=== PATIENT | female | born 1930 | race Caucasian/White ===

== ENCOUNTER 2018-01-12 11:49 | Emergency (ER) | payer MEDICARE ==
--- NOTE | 2018-01-12 11:53 | ER Report ---
History and Physical Time Seen By MD: 11:51 HPI/ROS CHIEF COMPLAINT: fall with right femur pain HISTORY OF PRESENT ILLNESS: This is an 87 year old female. [place] twisting motion in the grass. Has pain in distal right thigh and into the lateral knee. Did not injure anything else that she is aware of. Has no head injury or back pain. She has traction per EMS and feels better. Also was given Fentanyl 50mcg IV. EMS reported the leg is twisted inward and shortened with deformity mid tibia. She has normal sensation in the leg and foot and can move the foot and toes. She has pain worsening with motion of the leg. Last oral intake was about 1 hour ago, about 1100, ate a burrito. Allergies: Coded Allergies: No Known Drug Allergies (Unverified , 01/12/18) Home Meds Reported Medications Multivitamin With Minerals (MULTIPLE VITAMIN) 1 Each Tablet, 1 EACH PO DAILY, T AB 01/12/18 Past Medical/Surgical History Right total knee replacement, right shoulder repair, has some urinary stress incontinence, arthritis Reviewed Nurses Notes: Yes Constitutional Vital Sign - Last 24 Hours 01/12/18 01/12/18 01/12/18 01/12/18 11:51 12:00 12:15 12:30 Temp 97.6 Pulse 71 71 74 71 Resp 16 23 24 16 B/P (MAP) 170/134 Pulse Ox 91 97 96 96 O2 Delivery Room Air 01/12/18 01/12/18 01/12/18 01/12/18 12:45 13:00 13:15 13:43 Pulse 75 79 82 Resp 14 47 36 B/P (MAP) 173/80 (111) Pulse Ox 96 95 95 01/12/18 01/12/18 01/12/18 01/12/18 13:45 14:00 14:15 14:30 Pulse 75 75 70 77 Resp 19 10 19 11 Pulse Ox 96 94 95 91 01/12/18 01/12/18 01/12/18 01/12/18 14:45 15:00 15:15 15:17 Temp 98.1 Pulse 79 75 75 75 Resp 8 20 20 14 B/P (MAP) 141/79 (99) Pulse Ox 95 92 96 Physical Exam General Appearance: The patient is alert. No acute distress. Non-toxic in appearance. Eyes: Pupils are equal, round. Reactive to light. No pallor, injection or icterus. Extraocular movements are intact. ENT: Mucous membranes are moist. Normal oral mucosa. Posterior oropharynx is normal. Neck: Supple and non tender. No lymphadenopathy. Respiratory: Lungs are clear to auscultation. Cardiovascular: Regular rate and rhythm. No murmurs, gallops or rubs. Normal capillary refill. Normal dorsalis pedis and posterior tibialis pulses. No edema. Gastrointestinal: Abdomen is soft and non tender. Nondistended. Normal active bowel sounds. Neurological: Alert and oriented x3. Has normal sensation in the foot, leg and hip areas. Can move the foot and ankle without deficits. Skin: Swelling of the mid thigh. Some mild bruising. No rashes. Musculoskeletal: Patient is tender mid femur and down to the knee to the lateral side. Can move the foot and ankle, no weakness noted there. No pain of the hip and pelvis area. DIFFERENTIAL DIAGNOSIS: After history and physical exam, differential diagnosis was considered for pain and deformity of the right thigh concerning for bony injury. Medical Decision Making Data Points Result Diagram: 01/12/18 1414 01/12/18 1414 Laboratory Hematology Test 01/12/18 14:14 Red Blood Count 4.54 M/uL (4.17-5.56) Mean Corpuscular Volume 92.7 fL (80.0-96.0) Mean Corpuscular Hemoglobin 31.3 pg (26.0-33.0) Mean Corpuscular Hemoglobin Concent 33.8 g/dL (32.0-36.0) Red Cell Distribution Width 14.9 % (11.5-14.5) Mean Platelet Volume 10.3 fL (7.2-11.1) Neutrophils (%) (Auto) 81.5 % (39.4-72.5) Lymphocytes (%) (Auto) 10.2 % (17.6-49.6) Monocytes (%) (Auto) 6.5 % (4.1-12.4) Eosinophils (%) (Auto) 0.8 % (0.4-6.7) Basophils (%) (Auto) 1.0 % (0.3-1.4) Nucleated RBC Relative Count (auto) 0.1 /100WBC Neutrophils # (Auto) 4.4 K/uL (2.0-7.4) Lymphocytes # (Auto) 0.5 K/uL (1.3-3.6) Monocytes # (Auto) 0.3 K/uL (0.3-1.0) Eosinophils # (Auto) 0.0 K/uL (0.0-0.5) Basophils # (Auto) 0.1 K/uL (0.0-0.1) Nucleated RBC Absolute Count (auto) 0.00 K/uL Prothrombin Time 13.0 seconds (12.0-14.4) Prothromb Time International Ratio 0.98 Activated Partial Thromboplast Time 27 seconds (23-35) Sodium Level 138 mmol/L (137-145) Potassium Level 3.7 mmol/L (3.5-5.0) Chloride Level 104 mmol/L (98-107) Carbon Dioxide Level 27 mmol/L (22-31) Blood Urea Nitrogen 21 mg/dl (7-18) Creatinine 0.70 mg/dl (0.52-1.04) Glomerular Filtration Rate Calc > 60.0 Random Glucose 142 mg/dl (75-110) Calcium Level 9.0 mg/dl (8.4-10.2) Total Bilirubin 0.5 mg/dl (0.2-1.3) Aspartate Amino Transf (AST/SGOT) 24 U/L (0-35) Alanine Aminotransferase (ALT/SGPT) 16 U/L (0-56) Alkaline Phosphatase 69 U/L (0-126) Total Protein 7.0 g/dl (6.3-8.2) Albumin 3.8 g/dl (3.5-5.0) Chemistry Test 01/12/18 14:14 White Blood Count 5.4 k/uL (4.5-11.0) Red Blood Count 4.54 M/uL (4.17-5.56) Hemoglobin 14.2 g/dL (12.0-16.0) Hematocrit 42.1 % (34.0-47.0) Mean Corpuscular Volume 92.7 fL (80.0-96.0) Mean Corpuscular Hemoglobin 31.3 pg (26.0-33.0) Mean Corpuscular Hemoglobin Concent 33.8 g/dL (32.0-36.0) Red Cell Distribution Width 14.9 % (11.5-14.5) Platelet Count 149 K/uL (150-450) Mean Platelet Volume 10.3 fL (7.2-11.1) Neutrophils (%) (Auto) 81.5 % (39.4-72.5) Lymphocytes (%) (Auto) 10.2 % (17.6-49.6) Monocytes (%) (Auto) 6.5 % (4.1-12.4) Eosinophils (%) (Auto) 0.8 % (0.4-6.7) Basophils (%) (Auto) 1.0 % (0.3-1.4) Nucleated RBC Relative Count (auto) 0.1 /100WBC Neutrophils # (Auto) 4.4 K/uL (2.0-7.4) Lymphocytes # (Auto) 0.5 K/uL (1.3-3.6) Monocytes # (Auto) 0.3 K/uL (0.3-1.0) Eosinophils # (Auto) 0.0 K/uL (0.0-0.5) Basophils # (Auto) 0.1 K/uL (0.0-0.1) Nucleated RBC Absolute Count (auto) 0.00 K/uL Prothrombin Time 13.0 seconds (12.0-14.4) Prothromb Time International Ratio 0.98 Activated Partial Thromboplast Time 27 seconds (23-35) Glomerular Filtration Rate Calc > 60.0 Calcium Level 9.0 mg/dl (8.4-10.2) Total Bilirubin 0.5 mg/dl (0.2-1.3) Aspartate Amino Transf (AST/SGOT) 24 U/L (0-35) Alanine Aminotransferase (ALT/SGPT) 16 U/L (0-56) Alkaline Phosphatase 69 U/L (0-126) Total Protein 7.0 g/dl (6.3-8.2) Albumin 3.8 g/dl (3.5-5.0) Coagulation Test 01/12/18 14:14 Prothrombin Time 13.0 seconds Prothromb Time International Ratio 0.98 Activated Partial Thromboplast Time 27 seconds EKG/Imaging Imaging X-ray: Right femur was obtained. I viewed the images myself on the PACS system. My interpretation of the images is: Distal right femur fracture medial and anterior displacement of the distal fracture fragment. The radiologist interpretation had no clinically significant variation from this interpretation. CT scan: L-SPINE W/O CONTRAST HISTORY: Fall. Low back pain. COMPARISON STUDIES: None TECHNIQUE: Axial images were obtained from the thoraco-lumbar junction through the upper sacrum without IV contrast administration. Coronal and sagittal reformatted images were obtained from the axial source data. One of the following dose optimization techniques was utilized in the performance of this exam: automated exposure control; adjustment of the mA and/or kv according to patient size; or use of iterative reconstruction technique. Specific details can be referenced in the facility's radiology CT exam operational policy. FINDINGS: Paravertebral soft tissues: Negative Alignment: Grade 2 anterolisthesis at L5-S1 measuring 14 mm with bilateral spondylolysis. Vertebral bodies: No discrete vertebral body compression deformity. Mild smooth dextroscoliosis. Posterior elements: Multilevel moderate facet proliferation especially from L3- S1. Disc Spaces: Multilevel moderate-severe degenerative disc disease throughout the visualized thoracal lumbar spine with vacuum disc most significantly from L4-S1. Findings concerning for moderate canal stenosis at L4-L5. Visualized retroperitoneal / abdominal structures: Multiple bilateral peripelvic renal cysts. Large hiatal hernia. Other findings: None significant IMPRESSION: 1. 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 2. Moderate-severe degenerative changes throughout the remainder the lumbar spi ne. Findings concerning for moderate canal stenosis L4-L5 Report Dictated By: Ramiro Felipe MD at 01/12/2018 2:06 PM ED Course/Re-evaluation Clinical Indication for ER IV: IV Access ED Course Initial evaluation was done, suspicion for the femur fracture as noted above. X- rays were done showing what appears to be a spiral fracture of the distal shaft of the right femur. She also is having a little bit of low back pain as well, she does sometimes get chronic pain there but this seemed to be worse after the fall. CT scan of the lumbar spine was obtained which shows degenerative changes but no acute fracture or acute pathology there. Discussed the case with Dr. Kwan, orthopedic surgeon production pattern maker. Based on capabilities at our hospital, and was recommended that we transfer the patient, recommendation for [facility]. Discussed this with the family. On further reevaluation, the patient was complaining of low back pain as noted above and the CT scan was done showing no acute injury. We did give the patient a second dose of fentanyl and she was starting to have more pain. I spoke with Dr. Aaron, the ER physician at [facility]. Dr. Smith, trauma surgery is the accepting doc, but he is in surgery at the moment. Re-evaluation shows that the patient has continued normal circulation/pulses in the foot and normal sensation as well. Decision to Disposition Date: Jan 12, 2018 Decision to Disposition Time: 14:37 Transfer Facility Patient was transferred to [facility] via ambulance. The transfer was emergent, and was required because the capabilities of the receiving hospital. Consent for transfer was obtained from the patient and her family. [facility] was chosen based on discussion with the family and recommendation by orthopedic surgery. See EMTALA for transfer orders. Depart Departure Latest Vital Signs Vital Signs Date Time Temp Pulse Resp B/P (MAP) Pulse Ox O2 Delivery O2 Flow Rate FiO2 01/12/18 15:17 98.1 75 14 141/79 (99) 96 01/12/18 11:51 Room Air Impression: Primary Impression: Femur fracture, right Condition: Improved Disposition: XFER TO [facility] Problem Qualifiers Primary Impression: Femur fracture, right Encounter type: initial encounter Femur location: shaft Fracture type: closed Fracture morphology: unspecified fracture morphology Qualified Codes: S72.301A - Unspecified fracture of shaft of right femur, initial encounter for closed fracture THEA SIERRA MD Jan 12, 2018 11:53
--- NOTE | 2018-01-12 14:13 | RADIOLOGY IMAGING REPORT ---
FACILITY: PATIENT NAME: Azalia Snell : 1930 MR: [id number] V: [id number] EXAM DATE: ORDERING PHYSICIAN: THEA SIERRA TECHNOLOGIST: Location: [facility] [place] Patient: Azalia Snell : 1930 Visit/Account:[id number] Date of Sevice: 01/12/2018 L-SPINE W/O CONTRAST HISTORY: Fall. Low back pain. COMPARISON STUDIES: None TECHNIQUE: Axial images were obtained from the thoraco-lumbar junction through the upper sacrum with out IV contrast administration. Coronal and sagittal reformatted images were obtained from the axial source data. One of the following dose optimization techniques was utilized in the performance of [facility] s exam: automated exposure control; adjustment of the mA and/or kv according to patient size; or use of iterative reconstruction technique. Specific details can be referenced in the facility's radiology CT exam operational policy. FINDINGS: Paravertebral soft tissues: Negative Alignment: Grade 2 anterolisthesis at L5-S1 measuring 14 mm with bilateral spondylolysis. Vertebral bodies: No discrete vertebral body compression deformity. Mild smooth dextroscoliosis. Posterior elements: Multilevel moderate facet proliferation especially from L3-S1. Disc Spaces: Multilevel moderate-severe degenerative disc disease throughout the visualized thoracal lumbar spine with vacuum disc most significantly from L4-S1. Findings concerning for moderate canal s tenosis at L4-L5. Visualized retroperitoneal / abdominal structures: Multiple bilateral peripelvic renal cysts. Large h iatal hernia. Other findings: None significant IMPRESSION: 1. 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 2. Moderate-severe degenerative changes throughout the remainder the lumbar spine. Findings concernin g for moderate canal stenosis L4-L5 Report Dictated By: Ramiro Felipe MD at 01/12/2018 2:06 PM Report E-Signed By: Ramiro Felipe MD at 01/12/2018 2:10 PM [id number]
[2018-01-12 14:25] LABS: PLATELET COUNT, AUTOMATED 149 K/uL (150-450)
[2018-01-12 14:34] LABS: INR 0.98
[2018-01-12] MEDS ORDERED: fentaNYL CITR 100 MCG/2 ML AMP IVP ONE (14:45)
[2018-01-12 15:17] VITALS: BP 141/79
[2018-01-12] MEDS ORDERED: MULT-1335 PO (15:32)
== END 2018-01-12 15:33 | disposition short-term general hospital (02) ==
LOC: ER 11:56
DX: S72.344A Nondisplaced spiral fracture of shaft of right femur, initial encounter for closed fracture (principal); W01.0XXA Fall on same level from slipping, tripping and stumbling without subsequent striking against object, initial encounter; Y92.830 Public park as the place of occurrence of the external cause
CPT/HCPCS: 36415; 72131; 73552; 85025; 85610; 85730; 96374; 99285; J3010; 82040; 82247; 82310; 82374; 82435; 82565; 82947; 84075; 84132; 84155; 84295; 84450; 84460; 84520

== ENCOUNTER → 2018-01-12 | Outpatient (CLI) | payer MEDICARE ==
[~2018-01-12] MED LIST: MULT-1335 PO
== END ==
LOC: AMB 15:13
PROVIDERS: ATTEND Nurse Practitioner
DX: S72.401A Unspecified fracture of lower end of right femur, initial encounter for closed fracture (principal); W18.39XA Other fall on same level, initial encounter
CPT/HCPCS: A0425; A0428

== ENCOUNTER → 2018-01-12 | Outpatient (CLI) | payer MEDICARE | LOC: AMB 11:05 | PROVIDERS: ATTEND Nurse Practitioner | DX: M79.651 Pain in right thigh (principal); W18.30XA Fall on same level, unspecified, initial encounter; Y92.830 Public park as the place of occurrence of the external cause | CPT/HCPCS: A0425; A0427 ==